=== PATIENT | female | born 1995 | race Caucasian/White ===

== ENCOUNTER 2024-05-17 09:44 | Inpatient (IN) | payer OTHER ==
[2024-05-17 10:13] VITALS: BMI 29.5
[2024-05-17] MEDS ORDERED: ACETAMINOPHEN 325 MG TABLET (FP) PO PRN (10:48)
[2024-05-17] MEDS ORDERED: BENZONATATE 200 MG CAPSULE PO PRN (10:48)
[2024-05-17] MEDS ORDERED: POLYETHYLENE GLYCOL (HEALTHYLAX) 3350 17 GM PACKET PO PRN (10:48)
[2024-05-17] MEDS ORDERED: ONDANSETRON *ODT* 4 MG TABLET SL PRN (10:48)
[2024-05-17] MEDS ORDERED: LOPERAMIDE HCL 2 MG CAPSULE PO PRN (10:48)
[2024-05-17] MEDS ORDERED: IBUPROFEN 400 MG TABLET (FP) PO PRN (10:48)
[2024-05-17] MEDS ORDERED: hydrOXYzine PAMOATE 25 MG CAPSULE (FP) PO PRN (10:48)
[2024-05-17] MEDS ORDERED: MAG HYDROX/AL HYDROX/SIMETH 30 ML UNIT-DOSE CUP PO PRN (10:48)
[2024-05-17] MEDS ORDERED: BISMUTH SUBSALICYLATE 262 MG/15 ML BTL PO PRN (10:48)
[2024-05-17] MEDS ORDERED: BENZOCAINE/MENTHOL (CHLORASEPTIC ) LOZENGE MM PRN (10:48)
[2024-05-17] MEDS ORDERED: NALOXONE (NARCAN) HCL 4 MG/0.1 ML SPRAY NS PRN (10:48)
[2024-05-17] MEDS ORDERED: DICYCLOMINE HCL 10 MG CAPSULE PO PRN (10:48)
[2024-05-17] MEDS ORDERED: guaiFENesin 600 MG TABLET.ER (FP) PO PRN (10:48)
[2024-05-17] MEDS ORDERED: chlordiazePOXIDE HCL 25 MG CAPSULE PO PRN (10:58)
[2024-05-17] MEDS ORDERED: chlordiazePOXIDE HCL 25 MG CAPSULE ONE (11:15)
[2024-05-17] MEDS ORDERED: IBUPROFEN 600 MG TABLET (FP) PO ONE (11:15)
[2024-05-17] MEDS: chlordiazePOXIDE HCL 25 MG CAPSULE PO SCH (11:17)
[2024-05-17] MEDS: IBUPROFEN 600 MG TABLET (FP) PO PRN (11:19)
[2024-05-17] MEDS: MAGNESIUM HYDROX 2400MG/30ML ORAL SUSPENSION 30 ML CUP PO PRN (17:16)
[2024-05-17] MEDS: MELATONIN 5 MG TABLETS PO SCH (22:27)
[2024-05-17] MEDS: THIAMINE 100 MG TABLET PO SCH (22:27)
[2024-05-17] MEDS: METHOCARBAMOL 500 MG TABLET PO PRN (22:29)
[2024-05-18 09:53] VITALS: BP 134/82; PULSE 89; RESP 18; TEMP 97.6
[2024-05-18] MEDS: PRENATAL VITAMINS W/ FOLIC ACID TABLET (FP) PO SCH (10:12)
[2024-05-18 12:08] LABS: POTASSIUM 3.3 mmol/L (3.5-5.1)
[2024-05-18 12:10] LABS: CALCIUM 8.7 mg/dL (8.5-10.1); HEMATOCRIT 38.3 % (32.4-45.2); HEMOGLOBIN 12.6 GM/dL (10.7-15.3); MCH 28.5 pg (25.7-33.7); MCHC 32.9 g/dl (32.0-36.0); MEAN CELL VOLUME 86.4 fl (80-96); MEAN PLT VOLUME 10.8 fl (7.5-11.1); PLATELET COUNT 74 10^3/uL (134-434); RBC 4.43 M/mm3 (3.60-5.2); RDW 13.7 % (11.6-15.6); WHITE BLOOD COUNT 8.2 K/mm3 (4.0-10.0)
[2024-05-18 12:11] LABS: ALBUMIN 3.8 g/dl (3.4-5.0)
[2024-05-18 12:14] LABS: BLOOD UREA NITROGEN 10.3 mg/dL (7-18); CREATININE 0.8 mg/dL (0.55-1.3)
[2024-05-19] MEDS ORDERED: chlordiazePOXIDE HCL 25 MG CAPSULE PO SCH (05:00)
[2024-05-20] MEDS ORDERED: chlordiazePOXIDE HCL 10 MG CAPSULE PO PRN
[2024-05-20] MEDS ORDERED: chlordiazePOXIDE HCL 10 MG CAPSULE PO SCH (05:00)
[2024-05-21] MEDS ORDERED: chlordiazePOXIDE HCL 10 MG CAPSULE PO SCH (05:00)
[2024-05-22] MEDS ORDERED: chlordiazePOXIDE HCL 10 MG CAPSULE PO ONE (05:00)
== END 2024-05-18 10:22 | disposition home or self-care (01) | DRG 775 ==
LOC: YASAS 09:44 → Y6N 10:59
PROVIDERS: ADMIT Allergy & Immunology; ATTEND Allergy & Immunology
PROC: HZ2ZZZZ Detoxification Services for Substance Abuse Treatment (ICD-10-PCS; principal; 2024-05-17)
DX: F10.230 Alcohol dependence with withdrawal, uncomplicated (principal); F17.290 Nicotine dependence, other tobacco product, uncomplicated; F10.280 Alcohol dependence with alcohol-induced anxiety disorder; F10.282 Alcohol dependence with alcohol-induced sleep disorder; F41.9 Anxiety disorder, unspecified; R22.31 Localized swelling, mass and lump, right upper limb
CPT/HCPCS: 36415; 80053; 80305; 80307; 81025; 85027; 86780; 93005; 93010